=== PATIENT | female | born 1995 | race Two or more races ===

== ENCOUNTER 2023-06-08 18:51 | Emergency (ER) | payer MEDICAID ==
[~2023-06-08] VITALS: Ht 160 cm; Wt 74.1 kg
[2023-06-08 19:00] VITALS: BP 124/78; PULSE 82; RESP 16; TEMP 98.1
[2023-06-09] MEDS ORDERED: LIDOCAINE/PF 1% 2 ML VIAL IM ONE (00:15)
[2023-06-09] MEDS ORDERED: CefTRIAXone SODIUM 1 GM/VIAL IM ONE (00:15)
[2023-06-09] MEDS ORDERED: HYDROCODONE/ACETAMINOPHEN 5-325 MG TABLET PO ONE (00:15)
[2023-06-09] MEDS ORDERED: CEPH-558 PO (00:18)
[2023-06-09] MEDS ORDERED: HYDR-4723 PO (00:18)
[2023-06-09] MEDS ORDERED: SULF-261 PO (00:18)
[2023-06-09] MEDS ORDERED: PERTUSS(ACELL),DIPH,TET VAC/PF 0.5 ML SYRINGE IM. ONE (00:30)
== END 2023-06-09 02:18 | disposition home or self-care (01) ==
LOC: EMS 18:56
DX: S62.631A Displaced fracture of distal phalanx of left index finger, initial encounter for closed fracture (principal); Z98.890 Other specified postprocedural states; W23.0XXA Caught, crushed, jammed, or pinched between moving objects, initial encounter; Y93.89 Activity, other specified; Y92.89 Other specified places as the place of occurrence of the external cause; Y99.8 Other external cause status
CPT/HCPCS: 99284; 73130; 12001; 90715; 90471; 96372; J0696; J3490

== ENCOUNTER 2024-04-09 03:10 | Emergency (ER) | payer MEDICAID ==
[~2024-04-09] VITALS: Ht 162.6 cm; Wt 63.6 kg
[~2024-04-09 03:10] MED LIST: CEPH-558 PO; HYDR-4062 PO; SULF-261 PO
[2024-04-09 04:50] LABS: BASOPHILS % (AUTO) 0.7 % (0.0-2.0); EOSINOPHILS % (AUTO) 1.8 % (1.0-6.0); HEMATOCRIT 39.6 % (36-46); HEMOGLOBIN 13.2 g/dL (12.0-16.0); LYMPHOCYTES # (AUTO) 2.4 K/uL (1.0-4.8); LYMPHOCYTES % (AUTO) 41.2 % (22.0-44.0); MEAN CORPUSCULAR HEMOGLOBIN 28.1 pg (26.0-34.0); MEAN CORPUSCULAR HGB CONC 33.3 G/dL (31.0-37.0); MEAN CORPUSCULAR VOLUME 85 fL (80-100); MONOCYTES # (AUTO) 0.3 K/uL (0.1-1.0); MONOCYTES % (AUTO) 5.7 % (2.0-9.0); NEUTROPHILS % (AUTO) 50.6 % (40.0-70.0); PLATELET COUNT (AUTO) 211 K/uL (150-450); RED BLOOD CELL COUNT(AUTO) 4.67 MIL/uL (4.00-5.20); RED CELL DISTRIBUTION WIDTH 14.8 % (11.5-14.5); WHITE BLOOD COUNT (AUTO) 5.8 K/uL (4.5-11.0)
[2024-04-09 04:55] LABS: ANION GAP 9 mmol/L (8-16); CALCIUM, TOTAL 8.5 mg/dL (8.8-10.5); CARBON DIOXIDE 25 mmol/L (22-29); CHLORIDE 108 mmol/L (98-107); CREATININE 0.86 mg/dL (0.60-1.30); GLOMERULAR FILTR. RATE CALC > 60 mL/min (>60); GLUCOSE,RANDOM 94 mg/dL (70-110); SODIUM SERUM 142 mmol/L (136-145); UREA NITROGEN, BLOOD 15 mg/dL (7-18)
[2024-04-09 05:01] LABS: ALANINE AMINOTRANSFERASE 25 U/L (12-78); ALBUMIN 3.7 g/dL (3.4-5.0); ALKALINE PHOSPHATASE 85 U/L (46-116); ASPARTATE AMINOTRANSFERASE 20 U/L (15-37); BILIRUBIN,TOTAL 0.6 mg/dL (0.1-1.0); LIPASE 43 U/L (16-77); TOTAL PROTEIN, SERUM 7.1 g/dL (6.4-8.2)
[2024-04-09] MEDS: MAG HYDROX/ALUMINUM HYD/SIMETH ES 30 ML SUSPENSION UDCUP PO ONE (06:29)
[2024-04-09] MEDS: FAMOTIDINE 20 MG TABLET PO ONE (06:29)
[2024-04-09] MEDS: ONDANSETRON 4 MG TABLET PO ONE (06:29)
[2024-04-09] MEDS ORDERED: FAMO20 PO (07:09)
[2024-04-09 07:31] VITALS: BP 124/68; PULSE 74; RESP 19; TEMP 97.9; O2SAT 100
== END 2024-04-09 07:48 | disposition home or self-care (01) ==
LOC: EMS 03:10
DX: R10.13 Epigastric pain (principal); Z98.890 Other specified postprocedural states
CPT/HCPCS: 99284; 80048; 80076; 83690; 84702; 85025; 36415; Q0162

== ENCOUNTER 2024-10-23 11:34 | Emergency (ER) | payer MEDICAID ==
[~2024-10-23] VITALS: Ht 160 cm; Wt 60.0 kg
[~2024-10-23 11:34] MED LIST changes: +FAMO20 PO
[2024-10-23 11:51] VITALS: BP 106/74; PULSE 63; RESP 18; TEMP 98.2; O2SAT 100
[2024-10-23 12:28] LABS: COVID AG,FIA SOURCE NASAL SWAB
[2024-10-23 12:28] LABS: BASOPHILS % (AUTO) 0.5 % (0.0-2.0); EOSINOPHILS % (AUTO) 0.5 % (1.0-6.0); HEMOGLOBIN 12.5 g/dL (12.0-16.0); LYMPHOCYTES # (AUTO) 2.3 K/uL (1.0-4.8); LYMPHOCYTES % (AUTO) 36.4 % (22.0-44.0); MEAN CORPUSCULAR HEMOGLOBIN 26.3 pg (26.0-34.0); MEAN CORPUSCULAR VOLUME 80 fL (80-100); MONOCYTES # (AUTO) 0.4 K/uL (0.1-1.0); MONOCYTES % (AUTO) 5.8 % (2.0-9.0); NEUTROPHILS # (AUTO) 3.6 K/uL (1.8-7.7); NEUTROPHILS % (AUTO) 56.8 % (40.0-70.0); PLATELET COUNT (AUTO) 221 K/uL (150-450); RED BLOOD CELL COUNT(AUTO) 4.76 MIL/uL (4.00-5.20); RED CELL DISTRIBUTION WIDTH 15.1 % (11.5-14.5); WHITE BLOOD COUNT (AUTO) 6.3 K/uL (4.5-11.0)
[2024-10-23] MEDS: SODIUM CHLORIDE 0.9% 1,000 ML IV ONE (12:28)
[2024-10-23] MEDS: FAMOTIDINE 20 MG/2 ML VIAL IVP ONE (12:29)
[2024-10-23] MEDS: ONDANSETRON HCL 4 MG/2 ML VIAL IVP ONE (12:29)
[2024-10-23] MEDS: KETOROLAC TROMETHAMINE 30 MG/ML VIAL IVP ONE (12:31)
[2024-10-23] MEDS: MAG HYDROX/ALUMINUM HYD/SIMETH 30 ML SUSPENSION UDCUP PO ONE (12:32)
[2024-10-23] MEDS: ACETAMINOPHEN 325 MG TABLET PO ONE (12:33)
[2024-10-23 12:36] LABS: ANION GAP 5 mmol/L (8-16); CALCIUM, TOTAL 8.6 mg/dL (8.8-10.5); CARBON DIOXIDE 28 mmol/L (22-29); CHLORIDE 106 mmol/L (98-107); CREATININE 0.74 mg/dL (0.60-1.30); GLOMERULAR FILTR. RATE CALC > 60 mL/min (>60); GLUCOSE,RANDOM 92 mg/dL (70-110); POTASSIUM 4.1 mmol/L (3.5-5.1); SODIUM SERUM 139 mmol/L (136-145); UREA NITROGEN, BLOOD 10 mg/dL (7-18)
[2024-10-23] MEDS ORDERED: 0.9% SODIUM CHLORIDE 10 ML SYRINGE IVP ONE (12:40)
[2024-10-23] MEDS ORDERED: SODIUM CHLORIDE 0.9% 100 ML ONE (12:40)
[2024-10-23] MEDS ORDERED: IOHEXOL 300 MG/ML 100 ML VIAL ONE (12:40)
[2024-10-23 12:42] LABS: ALBUMIN 3.5 g/dL (3.4-5.0); BILIRUBIN,DIRECT 0.2 mg/dL (0.00-0.20)
[2024-10-23 13:01] LABS: SARS-COV2 (COVID) ANTIGEN,FIA Negative (Negative)
[2024-10-23 13:02] LABS: INFLUENZA TYPE A NEGATIVE FOR TYPE A (NEGATIVE); INFLUENZA TYPE B NEGATIVE FOR TYPE B (NEGATIVE)
[2024-10-23 13:09] LABS: RAPID GROUP A STREP NEGATIVE (NEGATIVE)
[2024-10-23] MEDS ORDERED: OMEP-148 PO (14:23)
[2024-10-23] MEDS ORDERED: ACET-66 PO (14:23)
== END 2024-10-23 14:30 | disposition home or self-care (01) ==
LOC: EMS 11:34
DX: J02.9 Acute pharyngitis, unspecified (principal); E86.0 Dehydration; R13.10 Dysphagia, unspecified; Z20.822 Contact with and (suspected) exposure to COVID-19; Z98.890 Other specified postprocedural states; Z79.899 Other long term (current) drug therapy
CPT/HCPCS: 99285; 96374; 70491; 96375; 71045; 96361; 87426; 80048; 80076; 84703; 85025; 87430; 87804; 36415; J1885; J3490; J2405; J7030; J7050; Q9967